=== PATIENT | female | born 1980 | race Asian ===

== ENCOUNTER 2017-12-27 12:54 | Day surgery (SDC) | payer OTHER ==
[2017-12-27 12:59] VITALS: BMI 20.7
--- NOTE | 2017-12-27 13:02 | PDOC ---
History of Present Illness - General Chief Complaint: Pain, Acute Stated Complaint: ECTOPIC Time Seen by Provider: 12/27/17 13:02 History Source: Patient Exam Limitations: No Limitations - History of Present Illness Initial Comments: 12/27/17 13:23 37 year old female with no PMH A0 presenting for ectopic on ultrasound. Pt complains of pelvic and abdominal pain radiating to her back. She denies lightheadedness, dizziness, chest pain, shortness of breath, nausea, vomiting, weakness. She states she did not know she was , had an US ordered by her OBGYN for abdominal pain. She states she has a mirena IUD. She states she switched from the Paragard to Mirena in April because she had chronic anemia. She had 2 dislodged IUDs in 2016. TVUS report 12/27/16 - Ectopic in the left adnexa with gestational sac , pole, yolk sac, idetifiable heart rate at 140 bpm. Small amount of free fluid in the right adnexa, [place] and inthe left adnexa. PCP - Dr. Mena OBGYN - Dr. Silva Allergies - NKDA Surgical history - denies Denies blood thinner use Last ate - initially stated 1300 today, then stated 1100 today Past History - Past Medical History Allergies/Adverse Reactions: Allergies Allergy/AdvReac Type Severity Reaction Status Date / Time No Known Allergies Allergy Verified 12/27/17 12:55 Home Medications: Ambulatory Orders NK [No Known Home Medication] 12/27/17 COPD: No - Immunization History Immunization Up to Date: Yes - Suicide/Smoking/Psychosocial Hx Smoking History: Never smoked Review of Systems - Review of Systems Able to Perform ROS?: Yes Comments:: 12/27/17 13:29 General: denies fever, chills, night sweats, generalized weakness. HEENT: denies sore throat, rhinorrhea, ear pain. Heart: denies chest pain, palpitations, syncope, lower extremity swelling, diaphoresis. Respiratory: denies shortness of breath, cough, sputum production, hematemesis. Abdomen: admits to abdominal pain. denies nausea, vomiting, diarrhea, constipation, blood in stool. : admits to pelvic pain, vaginal bleeding. denies dysuria, increased urinary frequency, hematuria, urinary incontinence. Back: admits to back pain. Musculoskeletal: denies joint pain, muscle pain, joint swelling. Neurological: denies headache, dizziness, numbness, tingling, weakness. Skin: denies rash, laceration, abrasion. *Physical Exam - Vital Signs Last Vital Signs Temp Pulse Resp BP Pulse Ox 98.1 F 69 20 147/57 100 12/27/17 12:56 12/27/17 12:56 12/27/17 12:56 12/27/17 12:56 12/27/17 12:56 - Physical Exam Comments: 12/27/17 13:31 Appearance: comfortable. HEENT: head is normocephalic, atraumatic. EOMI. PERRLA. Neck: supple. Full ROM. Heart: regular rhythm. no murmurs, rubs or gallops. No pericardial friction rub. Lungs: clear to auscultation bilaterally. no crackles, rhonchi or wheezing. no stridor. Abdomen: soft. mild tenderness to palpation of suprapubic area. normal bowel sounds. Extremities: Peripheral pulses intact and equal. No lower extremity edema. Neurological: Alert. Oriented x3. CN 2-12 grossly intact. Moves all four extremities. ED Treatment Course - LABORATORY CBC & Chemistry Diagram: 12/27/17 13:20 12/27/17 13:20 Medical Decision Making - Medical Decision Making 12/27/17 13:32 37 year old female with no PMH A0 presenting for ectopic identified on TVUS. Pt c/o lower abdominal pain radiating to her back. Denies lightheadedness, dizziness, weakness. Initial Vital Signs Temp Pulse Resp BP Pulse Ox 98.1 F 69 20 147/57 100 12/27/17 12:56 12/27/17 12:56 12/27/17 12:56 12/27/17 12:56 12/27/17 12:56 Afebrile. No hypotension. No tachycardia. No hypoxia. Pending labs and admission for surgical removal of ectopic . 12/27/17 14:50 Labs normal. Pt will be admitted to Dr. Romero. *DC/Admit/Observation/Transfer Diagnosis at time of Disposition: Ectopic - Discharge Dispostion Condition at time of disposition: Stable Decision to Admit order: Yes - Referrals - Patient Instructions - Post Discharge Activity
[2017-12-27] MEDS ORDERED: ACETAMINOPHEN 1000 MG/100 ML VIAL (NON FORMULARY) IVPB ONE ×2 (13:22→18:37)
[2017-12-27 13:35] LABS: BASO % 0.4 % (0-2.0); EOS % 1.8 % (0-4.5); HEMATOCRIT 36.7 % (32.4-45.2); HEMOGLOBIN 12.5 GM/dL (10.7-15.3); LYMPH % 23.2 % (8-40); MCH 27.7 pg (25.7-33.7); MEAN CELL VOLUME 81.6 fl (80-96); MEAN PLT VOLUME 8.6 fl (7.5-11.1); MONO % 6.4 % (3.8-10.2); NEUT % 68.2 % (42.8-82.8); PLATELET COUNT 278 K/MM3 (134-434); RDW 13.6 % (11.6-15.6); WHITE BLOOD COUNT 7.7 K/mm3 (4.0-10.0)
[2017-12-27] MEDS ORDERED: morphine CARPU-JECT 4 MG/1 ML DISP.SYRIN IVPUSH ONE (13:37)
[2017-12-27 13:41] LABS: INR 1.06 (0.83-1.09)
[2017-12-27 13:43] LABS: ACTIVATED PTT 30.5 SECONDS (25.2-36.5)
[2017-12-27 13:51] LABS: ALK PHOS 82 U/L (45-117); ANION GAP 9 (8-16); BILIRUBIN,TOTAL 0.4 mg/dL (0.2-1.0); BLOOD UREA NITROGEN 11 mg/dL (7-18); CALCIUM 9.4 mg/dL (8.5-10.1); CHLORIDE 104 mmol/L (98-107); CO2 28 mmol/L (21-32); CREATININE 0.7 mg/dL (0.55-1.02); GLUCOSE,RANDOM 91 mg/dL (74-106); POTASSIUM 4.2 mmol/L (3.5-5.1); SGOT/AST 23 U/L (15-37); SGPT/ALT 22 U/L (12-78); SODIUM 141 mmol/L (136-145); TOT PROT 7.9 g/dl (6.4-8.2)
[2017-12-27] MEDS ORDERED: DEXTROSE 5%-0.45% SALINE 1,000 ML IV SCH ×2 (14:45→20:11)
--- NOTE | 2017-12-27 16:24 | PDOC ---
Attending Attestation - Resident Resident Name: FrancesCherry - ED Attending Attestation I have performed the following: I have examined & evaluated the patient, The case was reviewed & discussed with the resident, I agree w/resident's findings & plan, Exceptions are as noted - Physicial Exam PE: 12/27/17 16:22 Patient is awake and alert, well-nourished, in mild discomfort (refuses pain medication); vital signs are noted Normocephalic, atraumatic PERRLA, EOMI CTA RRR Abdomen is soft, mild to moderate left lower quadrant tenderness to palpation is appreciated, there is no guarding or rebound; - Medical Decision Making 12/27/17 16:23 Patient is a 37-year-old female who presents to the ER with signs and symptoms of a left adnexal ectopic with FH and small amount of free fluid in the pelvis. Patient's hemodynamically stable in the ER. Dr. Arellano of [facility] consulted. Patient transported to the floor. 2 packs of red cells [facility] blood bank. <Destin Austin - Last Filed: 12/27/17 16:22> - HPI HPI: 12/27/17 16:56 The patient is 37 year old female, with a significant PMH anemia, who presents to the emergency department complaining of abdominal pain that radiates to her back secondary to ectopic on ultrasound. The patient states she did not know she was and has a mirena IUD. Documentation prepared by Mirella Ruelas, acting as director of medical review for Destin Austin MD. <Mirella Ruelas - Last Filed: 12/27/17 16:57>
[2017-12-27] MEDS ORDERED: ROCURONIUM BROMIDE 50 MG/5 ML VIAL ONE (16:48)
[2017-12-27] MEDS ORDERED: IBUPROFEN 800 MG/8 ML IJ IVPB PRN ×2 (16:48→20:11)
[2017-12-27] MEDS ORDERED: PROPOFOL 20 ML ONE (16:48)
[2017-12-27] MEDS ORDERED: ACETAMINOPHEN 325 MG TABLET (FP) PO PRN ×2 (16:48→20:11)
--- NOTE | 2017-12-27 16:48 | HP ---
Admitting History and Physical - Admission Chief Complaint: pelvic pain, ectopic History of Present Illness: 37 year old female with no PMH A0 presenting for ectopic on ultrasound. Pt complains of pelvic and abdominal pain and heavy vaginal bleeding. She denies lightheadedness, dizziness, chest pain, shortness of breath , nausea, vomiting, weakness. She states she did not know she was , had an US ordered by her OBGYN for abdominal pain. She states she had a mirena IUD - was not visualized on ultrasound. Recently switched from Paragard to Mirena in April because she had chronic anemia. She had 2 dislodged IUDs in 2017. 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 History Source: Medical Record Limitations to Obtaining History: No Limitations - Past Medical History Cardiovascular: No: AFIB, HTN Pulmonary: No: Asthma, COPD Hepatobiliary: No: Hepatitis B, Hepatitis C Renal/: No: UTI Heme/Onc: Yes: Anemia Psych: No: Anxiety, Bipolar, Depression - Past Surgical History Past Surgical History: Yes: None - Smoking History Smoking history: Never smoked - Alcohol/Substance Use Hx Alcohol Use: No History of Substance Use: reports: None - Social History Usual Living Arrangement: Yes: With Spouse ADL: Independent History of Recent Travel: No Home Medications - Allergies Allergies/Adverse Reactions: Allergies Allergy/AdvReac Type Severity Reaction Status Date / Time No Known Allergies Allergy Verified 12/27/17 12:55 - Home Medications Home Medications: Ambulatory Orders NK [No Known Home Medication] 12/27/17 Review of Systems - Review of Systems Constitutional: reports: No Symptoms Eyes: reports: No Symptoms HENT: reports: No Symptoms Neck: reports: No Symptoms Cardiovascular: reports: No Symptoms Respiratory: reports: No Symptoms Gastrointestinal: reports: No Symptoms Genitourinary: reports: No Symptoms Breasts: reports: No Symptoms Reported Musculoskeletal: reports: No Symptoms Integumentary: reports: No Symptoms Neurological: reports: No Symptoms Endocrine: reports: No Symptoms Hematology/Lymphatic: reports: No Symptoms Psychiatric: reports: No Symptoms Physical Examination Vital Signs: Vital Signs Temperature 98.1 F 12/27/17 12:56 Pulse Rate 69 12/27/17 12:56 Respiratory Rate 20 12/27/17 12:56 Blood Pressure 147/57 12/27/17 12:56 O2 Sat by Pulse Oximetry (%) 99 12/27/17 15:46 Constitutional: Yes: Well Nourished, No Distress, Calm, Poor Hygeine Eyes: Yes: EOM Intact HENT: Yes: Atraumatic, Normocephalic Neck: Yes: Trachea Midline Cardiovascular: Yes: Regular Rate and Rhythm Respiratory: Yes: Regular, CTA Bilaterally Gastrointestinal: Yes: Normal Bowel Sounds, Soft Renal/: Yes: Vaginal Bleeding Extremities: Yes: WNL Neurological: Yes: Alert, Oriented Psychiatric: Yes: Alert, Oriented Labs: CBC, BMP 12/27/17 13:20 12/27/17 13:20 Problem List - Problems (1) Ectopic Code(s): O00.90 - UNSPECIFIED ECTOPIC WITHOUT INTRAUTERINE Assessment/Plan Left ectopic , FHR noted and free fluid in pelvis pt not candidate for methotrexate free fluid concerning for leaking/possible early rupture will plan for OR now consents signed r/b/a discussed, plan for laparoscopy, probably unilateral salpingectomy
[2017-12-27] MEDS ORDERED: MIDAZOLAM HCL 2 MG/2 ML SINGLE DOSE VIAL ONE (16:50)
[2017-12-27] MEDS ORDERED: LACTATED RINGERS SOLUTION 1,000 ML IV SCH (17:00)
[2017-12-27] MEDS ORDERED: DEXAMETHASONE SOD PHOSPHATE 4 MG/1 ML VIAL ONE (17:21)
[2017-12-27] MEDS ORDERED: oxyCODONE HCL 5 MG TABLET PO PRN (18:06)
--- NOTE | 2017-12-27 18:06 | SURG ---
Surgery Copy Chaser Note Copy Chaser: Cj Alcazar PA-C Date of Service: 12/27/17 Diagnosis: Left ectopic Procedure: Laproscopic Left salpingectomy for ectopic I was present for the entirety of the operative procedure. For further detail, please refer to operative report.
[2017-12-27] MEDS ORDERED: KETOROLAC TROMETHAMINE 30 MG/1 ML VIAL ONE (18:13)
--- NOTE | 2017-12-27 18:13 | OP ---
Operative Note - Note: Operative Date: 12/27/17 Pre-Operative Diagnosis: ectopic Operation: laparoscopic left salpingectomy, evacuation of hemoperitoneum Findings: left ruptured ectopic (tubal) Post-Operative Diagnosis: Same as Pre-op Surgeon: Paige Romero Cattle Shipper: Cj Alcazar Anesthesiologist/HEAD NURSE: Bobby Torres Anesthesia: General Specimens Removed: left fallopian tube, ectopic tissue Estimated Blood Loss (mls): 10 (approx 50cc intraperitoneal blood noted upon entry) Operative Report Dictated: Yes
[2017-12-27] MEDS ORDERED: KETOROLAC TROMETHAMINE 30 MG/1 ML VIAL IVPUSH ONE ×3 (18:15→20:30)
[2017-12-27] MEDS ORDERED: ONDANSETRON 4 MG/2 ML VIAL IVPUSH PRN ×2 (18:15→20:11)
[2017-12-27] MEDS ORDERED: ACETAMINOPHEN INJECTION 100 ML IVPB ONE (18:29)
[2017-12-27] MEDS: oxyCODONE HCL 5 MG TABLET PO PRN (21:27)
[2017-12-28] MEDS: LACTATED RINGERS SOLUTION 1,000 ML IV SCH ×2 (00:16→01:00)
[2017-12-28 09:03] LABS: BASO % 0.4 % (0-2.0); HEMATOCRIT 33.4 % (32.4-45.2); HEMOGLOBIN 11.5 GM/dL (10.7-15.3); LYMPH % 8.4 % (8-40); MCHC 34.3 g/dl (32.0-36.0); MEAN CELL VOLUME 81.4 fl (80-96); MEAN PLT VOLUME 8.5 fl (7.5-11.1); MONO % 4.9 % (3.8-10.2); NEUT % 86.3 % (42.8-82.8); PLATELET COUNT 261 K/MM3 (134-434); RDW 13.7 % (11.6-15.6); WHITE BLOOD COUNT 10.3 K/mm3 (4.0-10.0)
[2017-12-28] MEDS: oxyCODONE HCL 5 MG TABLET PO PRN (09:22)
--- NOTE | 2017-12-28 09:36 | DS ---
Physical Examination Vital Signs: Vital Signs Temperature 98.5 F 12/28/17 06:00 Pulse Rate 61 12/28/17 06:00 Respiratory Rate 18 12/28/17 06:00 Blood Pressure 92/56 12/28/17 06:00 O2 Sat by Pulse Oximetry (%) 100 12/27/17 20:00 Constitutional: Yes: Well Nourished, No Distress, Calm Eyes: Yes: Conjunctiva Clear, EOM Intact HENT: Yes: Atraumatic, Normocephalic Neck: Yes: Supple, Trachea Midline Cardiovascular: Yes: Regular Rate and Rhythm Respiratory: Yes: Regular, CTA Bilaterally Gastrointestinal: Yes: Normal Bowel Sounds, Soft Wound/Incision: Yes: Clean/Dry, Well Approximated Neurological: Yes: Alert, Oriented Psychiatric: Yes: Alert, Oriented Labs: CBC, BMP 12/28/17 08:39 12/27/17 13:20 Discharge Summary Reason For Visit: ECTOPIC Current Active Problems Ectopic (Acute) Procedures: Principal: laparoscopic left salpingectomy Hospital Course: Uncomplicated post op course, discharged home on post op day 1. Hgb stable post op. Condition: Stable - Instructions Diet, Activity, Other Instructions: Physical activity Resume your normal everyday activity as tolerated no heavy lifting or exercise until seen by your surgeon. You may walk unlimited amounts and climb stairs. You may resume driving the car when you feel safe and comfortable behind the wheel. No sexual activity as instructed by Dr. Romero for 2 weeks. Wound care If there is glue on the skin leave them in place. It will peel off in the next 7 to 10 days. Do Not Peel it off. You may shower the day after surgery. Diet There are no dietary restrictions. Eat healthy, high-fiber foods. Drink 6 to 8 glasses of liquid each day. This will assist in keeping your bowels regular. Pain management You may take Tylenol or Ibuprofen (for example, Motrin, Advil etc.) for mild pain. A prescription will be sent to your pharmacy for severe pain if needed. Call Dr. Romero for any of the following: Severe pain not relieved by medication Fever of 101 or higher Excessive bleeding or drainage on dressing Inability to urinate Call the office at [phone] for an appointment in 2 weeks. Referrals: Paige Romero DO [Staff Physician] - - Home Medications Comprehensive Discharge Medication List: Ambulatory Orders Ibuprofen [Motrin -] 600 mg PO QID PRN #28 tablet 12/28/17 Oxycodone HCl/Acetaminophen [Percocet 5-325 mg Tablet -] 1 tab PO Q4H #20 tablet MDD 6 12/28/17
[2017-12-28 11:41] VITALS: BP 112/67; PULSE 64; TEMP 98.2
--- NOTE | 2017-12-29 09:57 | OP ---
DATE OF OPERATION: DATE OF DICTATION: 12/28/2017 PREOPERATIVE DIAGNOSIS: Left ectopic . POSTOPERATIVE DIAGNOSIS: Left ectopic . PROCEDURE: Diagnostic laparoscopy, left salpingectomy, and evacuation of hemoperitoneum. SURGEON: Paige Romero MD TILE CLASSIFIER: Roland Moody PA-C ANESTHESIA: General by Bobby Torres DO. ESTIMATED BLOOD LOSS: Of procedure was approximately 10 mL, however, at least 50 mL of intraperitoneal blood noted upon entry. SPECIMENS REMOVED: Left fallopian tube and tissue. COMPLICATIONS: None. COUNTS: Sponge, needle, and instrument counts were correct. DISPOSITION: Stable to PACU. BRIEF HISTORY AND PROCEDURE: Patient is a 37-year-old female who was admitted to [facility] after finding a left ectopic on ultrasound as an outpatient. The patient was admitted secondary to need for surgical intervention. The patient was counseled on her options and elected to undergo a diagnostic laparoscopy and possible salpingectomy versus oophorectomy and removal of ectopic . The consents were signed before the procedure. She was then taken back to the operating room where she was given general anesthesia and placed in the dorsal lithotomy position. A Bush catheter was placed under sterile conditions, and a hard time-out was performed. A 5-mm skin incision was created in the umbilicus, and the Veress needle was placed intraabdominally. The abdomen was insufflated with CO2 gas, and a 5-mm trocar was inserted. The camera was then placed in the abdomen, and after confirmation of intraabdominal placement, 2 bilateral 5-mm lower quadrant ports were placed on the left and right sides. Identification of the left fallopian tube was completed, and the tube was traced to its fimbriated end, and there appeared to be rupturing ectopic . The fallopian tube was elevated and dissected off its attachment to the uterus, mesosalpinx and ovary with several passes using the LigaSure device. Extensive pneumoperitoneum was noted upon entry into the abdomen, which was irrigated and suctioned at this time. The right fallopian tube and ovary appeared to be normal. The left ovary appeared to be normal. The right lower quadrant incision was extended to accommodate a 10-mm port, which was advanced into the abdomen under direct visualization, and the EndoCatch bag was placed inside the abdomen. The entire left fallopian tube and tissue specimen was placed into the EndoCatch bag, which was removed from the right lower quadrant port without difficulty. Using the Aime-Matthew device, the fascia and peritoneum were reapproximated with a single 3-0 Vicryl stitch under direct visualization, and then 2 deep subcutaneous stitches were placed with 4-0 Biosyn on the 10-mm port site. After inspection of the and intraabdominal contents and suction irrigation was completed, excellent hemostasis was noted on the surgical site. All trocars were then removed, and abdomen was desufflated. The skin was reapproximated in subcuticular fashion using 4-0 Biosyn, and skin glue was applied. The patient tolerated the procedure well, to recovery room in stable condition after the procedure. Sponge, needle, and instrument counts were reported to be correct. PAIGE ROMERO DO /[id number]
== END 2017-12-28 11:00 | disposition home or self-care (01) ==
LOC: JER 12:54 → JASUSAT 14:50 → JERBED 14:51 → UNDOADMIN 14:51 → JERBED 16:48 → JASUSAT 16:48 → J3W 20:26 → JASUSAT 12-28 11:00
PROVIDERS: ATTEND Obstetrics & Gynecology
PROC: 0UT64ZZ Resection of Left Fallopian Tube, Percutaneous Endoscopic Approach (ICD-10-PCS; 2017-12-27)
PROC: 10T24ZZ Resection of Products of Conception, Ectopic, Percutaneous Endoscopic Approach (ICD-10-PCS; principal; 2017-12-27 16:30)
DX: O00.102 Left tubal pregnancy without intrauterine pregnancy (principal); K66.1 Hemoperitoneum
CPT/HCPCS: 36415; 80053; 85025; 85610; 85730; 86850; 86900; 86901; 86922; 99283-25; J0131